=== PATIENT | male | born 1970 ===

== ENCOUNTER 2022-06-28 12:40 | Observation (INO) ==
[2022-06-28] MEDS ORDERED: SODIUM CHLORIDE 0.9% 1,000 ML IV STA (15:39)
[2022-06-28] MEDS ORDERED: KETOROLAC 30 MG/1 ML VIAL IV STA (15:39)
[2022-06-28] MEDS ORDERED: HYDROmorphone 1 MG/1 ML SYRINGE IV STA (15:39)
[2022-06-28] MEDS ORDERED: ONDANSETRON 4 MG/2 ML VIAL IV STA (15:39)
[2022-06-28 16:04] LABS: Basophils % 0.1 % (0.0-0.8); Hematocrit 45.2 VOL% (42.0-52.0); Hemoglobin 16.1 GM/DL (14.0-18.0); Immature Granulocytes % 0.5 %; Immature Granulocytes Absolute 0.09 #; Lymphocytes # 0.8 10*3/uL (1.4-4.0); Lymphocytes % 4.6 % (21.2-54.2); Mean Corpuscular HGB Conc 35.6 GM/DL (32-36); Mean Corpuscular Volume 87.9 FL (87-102); Mean Platelet Volume 9.4 FL (9.6-12.0); Monocytes # 0.4 10*3/uL (0.11-0.8); Monocytes % 2.3 % (1.7-12.7); Neutrophils % 92.5 % (38.7-73.9); Platelet Count 228 T/CUMM (130-400); Red Blood Count 5.14 MC/CUMM (3.8-5.5); Red Cell Distribution Width 12.7 % (9.3-17.3); White Blood Count 16.7 T/CUMM (4-12)
[2022-06-28 16:43] LABS: Albumin 4.3 G/DL (3.4-5.0); Bilirubin,Total 0.7 MG/DL (0.20-1.00); Calcium 9.9 MG/DL (8.5-10.1); Osmolality,Calculated 278.5 MOS/KG (273-304); Potassium 4.3 MMOL/L (3.5-5.1); Total Protein 7.5 G/DL (6.4-8.2)
[2022-06-28 17:01] LABS: Urine Appearance Cloudy (Clear); Urine Color Yellow (Yellow)
[2022-06-28 17:02] LABS: Bilirubin,Urine Small mg/dL (Negative); Blood, Urine Negative (Negative); Glucose,Urine (UA) Negative (Negative); Ketones,Urine 15 mg/dL (Negative); Nitrite,Urine Negative (Negative); Protein,Urine 30 mg/dL (Negative); Urine Specific Gravity >= 1.030 (1.001-1.035)
[2022-06-28 17:07] LABS: Mucus,Urine Many /LPF (Occasional)
[2022-06-28 18:21] LABS: Band Neutrophils 3 % (0-10); Lymphocytes 4 % (20-55); Platelet Estimate Normal; Total Cells Counted 100
[2022-06-28] MEDS ORDERED: HYDROmorphone 1 MG/1 ML SYRINGE IV PRN (20:16)
[2022-06-28] MEDS ORDERED: KETOROLAC 15 MG/1 ML VIAL IV PRN (20:16)
[2022-06-28] MEDS ORDERED: ACETAMINOPHEN 325 MG TABLET PO PRN (20:16)
[2022-06-28] MEDS ORDERED: ONDANSETRON 4 MG/2 ML VIAL IV PRN (20:16)
[2022-06-28] MEDS ORDERED: PROMETHAZINE 25 MG/1 ML VIAL IM PRN (20:16)
[2022-06-28] MEDS: DEXTROSE 5% LACTATED RINGERS 1,000 ML IV SCH (20:30)
[2022-06-28] MEDS: PIPERACILLIN/TAZOBACTAM 3,375 MG in SODIUM CHLORIDE 0.9% 100 ML IV SCH (20:35)
[2022-06-29] MEDS: PIPERACILLIN/TAZOBACTAM 3,375 MG in SODIUM CHLORIDE 0.9% 100 ML IV SCH ×2 (04:48→15:05)
[2022-06-29] MEDS ORDERED: PANTOPRAZOLE 40 MG TABLET PO SCH (09:00)
[2022-06-29] MEDS ORDERED: INDOCYANINE GREEN 25 MG VIAL IV ONE (09:18)
[2022-06-29] MEDS ORDERED: MIDAZOLAM 2 MG/2 ML VIAL ONE (10:08)
[2022-06-29] MEDS ORDERED: ROCURONIUM 50 MG/5 ML VIAL IV ONE (10:08)
[2022-06-29] MEDS ORDERED: SEVOFLURANE 1 UNIT/15 MINUTE INH ONE (10:08)
[2022-06-29] MEDS ORDERED: propofoL 200 MG/20 ML VIAL IV ONE (10:08)
[2022-06-29] MEDS ORDERED: fentaNYL 100 MCG/2 ML VIAL ONE ×3 (10:08→12:20)
[2022-06-29] MEDS ORDERED: LIDOCAINE 2% 5 ML VIAL ONE (10:08)
[2022-06-29] MEDS ORDERED: KETOROLAC 30 MG/1 ML VIAL ONE (10:08)
[2022-06-29] MEDS ORDERED: ACETAMINOPHEN INJ 1,000 MG/100 ML VIAL IV ONE (10:08)
[2022-06-29] MEDS ORDERED: ONDANSETRON 4 MG/2 ML VIAL ONE (10:08)
[2022-06-29] MEDS: DEXTROSE 5% LACTATED RINGERS 1,000 ML IV SCH ×2 (10:41→14:13)
[2022-06-29] MEDS ORDERED: LACTATED RINGERS 1,000 ML IV SCH (11:00)
[2022-06-29] MEDS ORDERED: TISSUE ADHESIVE 1 EACH APPLICATOR TOP ONE (11:11)
[2022-06-29] MEDS ORDERED: LIDOCAINE 1%/EPI INJ 20 ML VIAL ONE (11:11)
[2022-06-29] MEDS ORDERED: BUPIVACAINE MPF 0.25% 10 ML VIAL ONE (11:11)
[2022-06-29] MEDS ORDERED: GLYCOPYRROLATE 0.4 MG/2 ML VIAL ONE (12:13)
[2022-06-29] MEDS ORDERED: NEOSTIGMINE 10 MG/10 ML VIAL ONE (12:13)
[2022-06-29] MEDS ORDERED: PHENYLEPHRINE 1 MG/10 ML SYRINGE IV ONE (12:34)
[2022-06-29 15:49] VITALS: BP 110/56
[2022-06-30] MEDS ORDERED: lisinopriL 20 MG TABLET PO SCH (09:00)
== END 2022-06-29 19:05 | disposition home or self-care (01) ==
LOC: N.EDINP 12:40 → N.ED 12:40 → N.3E 19:26
PROVIDERS: ADMIT Surgery; ATTEND Surgery